=== PATIENT | male | born 1965 | race Caucasian/White ===

== ENCOUNTER 2020-02-10 23:30 | Emergency (ER) | payer OTHER, SELFPAY ==
--- NOTE | ~2020-02-10 | XR_ITS ---
EXAMINATION: XR abdomen/kub 1V DATE: 02/11/2020 01:21 INDICATION: Left lower flank pain. Urolithiasis. TECHNIQUE: A supine view of the abdomen on 2 radiographs was obtained. COMPARISON: CT dated 02/11/2020 FINDINGS: A subtle density seen in the region of the previous noted obstructing stone at the left ureterovesicu lar junction. A larger phlebolith seen in the right hemipelvis and there is an additional atheroscler otic calcification more cephalad in the left hemipelvis. The kidneys are opacified with contrast from the recent prior contrast enhanced CT. The right kidney and contrast opacified right renal collectin g system and ureter appear normal. The left kidney is enlarged with delayed contrast excretion within the dilated left renal collecting system and no evident contrast within the left ureter. Normal brenna l gas pattern. IMPRESSION: 1. Subtle density corresponding to a previously noted stone at the left ureterovesicular junction wit h mild left hydronephrosis with enlargement of the left kidney and delayed contrast excretion. Reviewed, dictated and finalized at location A. IMPRESSION: 1. Subtle density corresponding to a previously noted stone at the left uretero vesicular junction with mild left hydronephrosis with enlargement of the left k idney and delayed contrast excretion.
--- NOTE | ~2020-02-10 | CT_ITS ---
EXAMINATION: CT abdomen pelvis w con DATE: 02/11/2020 01:10 INDICATION: Lower abdominal pain. Left flank pain. TECHNIQUE: Computed tomography (CT) of the abdomen and pelvis was performed with 100 mL Omnipaque-350 intravenous contrast. Automated exposure control and iterative reconstruction technique were employe d. The dose-length product was 1385.35 mGy-cm. COMPARISON: None FINDINGS: Lung bases are clear. Heart size is normal. No pericardial or pleural effusion. Atherosclerotic coron adamaris artery calcifications. Small sliding-type hiatal hernia. Liver, gallbladder, spleen, pancreas, bi lateral adrenal glands and right kidney are normal. Delayed left nephrogram with mild left hydrourete ronephrosis extending to a 3-4 mm stone at the distalmost left ureter within 1 cm of the ureterovesic ular junction. Bladder is normal. Mild diverticulosis along the descending and sigmoid colon without adjacent inflammatory change to suggest diverticulitis. Small bowel and appendix are normal. No free intraperitoneal gas or fluid. No pathologically enlarged abdominal or pelvic lymphadenopathy. Small b ilateral fat-containing inguinal hernias. Bones are unremarkable. IMPRESSION: 1. 3-4 mm obstructing stone near the left ureterovesicular junction resulting in delayed left nephrog cedric and mild left hydroureteronephrosis. 2. Small sliding-type hiatal hernia. 3. Small bilateral fat-containing inguinal hernias. Reviewed, dictated and finalized at location A. IMPRESSION: 1. 3-4 mm obstructing stone near the left ureterovesicular junction resulting i n delayed left nephrogram and mild left hydroureteronephrosis. 2. Small sliding-type hiatal hernia. 3. Small bilateral fat-containing inguinal hernias.
[2020-02-10 23:30] VITALS: BP 166/94; PULSE 86; RESP 16; TEMP 36.6; O2SAT 97
--- NOTE | 2020-02-10 23:54 | ED.BACK ---
HPI - Back Pain/Injury General Chief Complaint: Back Pain/Injury Stated Complaint: low back pain Time Seen by Provider: 02/10/20 23:34 Source: patient Mode of arrival: EMS Limitations: no limitations History of Present Illness HPI Narrative: This patient is a 54 year old male who presents for evaluation of sudden onset left lower back pain 1.5 hours ago. He was sitting on the toilet when he develop sharp stabbing pain. This pain was so severe he became diaphoretic. He took aleve prior to arrival. He continued to have severe pain so he called 911. His has improved to 6/10 . He denies associated urinary symptoms, fever, chills or abdominal pain. He does feel bloated. Denies history of AAA. MD elicited complaint: back pain Related Data Home Medications Medication Instructions Recorded Confirmed atorvastatin 40 mg PO HS 02/11/20 bupropion HCl [Wellbutrin XL] 150 mg PO DAILY 02/11/20 duloxetine 60 mg PO BID 02/11/20 gabapentin 300 mg PO TID 02/11/20 lisinopril-hydrochlorothiazide 1 tablet PO DAILY 02/11/20 omeprazole 20 mg PO DAILY 02/11/20 primidone 50 mg PO BID 02/11/20 trazodone 100 mg PO HS PRN 02/11/20 Allergies Allergy/AdvReac Type Severity Reaction Status Date / Time iodine Allergy Intermediate Hives Verified 02/11/20 00:00 Penicillins Allergy Intermediate Hives Verified 02/11/20 00:00 Review of Systems Review of Systems: All systems reviewed & are unremarkable except as noted in HPI and below Constitutional: Constitutional: Denies chills and Denies fever(s) Cardiovascular: Cardiovascular: Denies chest pain Respiratory: Respiratory: Denies cough and Denies dyspnea Gastrointestinal: Gastrointestinal: Denies abdominal pain, Reports bloating, Denies diarrhea and Reports nausea Genitourinary: Genitourinary: Denies hematuria and Denies urinary frequency Musculoskeletal: Musculoskeletal: Reports back pain [facility] Past Medical History Medical History (Updated 02/11/20 @ 01:51 by Cammy Merino MD) Diabetes mellitus Hypertension Neuropathy Surgical History Surgical History (Updated 02/10/20 @ 23:55 by Cammy Merino MD) S/P surgery on nasal septum Social History Social History (Updated 02/10/20 @ 23:56 by Cammy Merino MD) Smoking status: Never smoker Alcohol intake: former Exam Const: General: no acute distress and alert Orientation/consciousness: patient oriented x3 HENMT: Head: normocephalic and atraumatic Face and sinus: face symmetric Eyes: EOM: EOMs intact bilaterally Chest: Chest palpation & inspection: normal inspection of the chest Resp: Effort & Inspection: normal respiratory effort and no retractions Auscultation: clear to auscultation bilaterally Cardio: Rate: regular rate Rhythm: regular rhythm Heart sounds: no murmurs GI: GI Palp: Yes Soft to palpation, No Tenderness to palpation present (GI) and No Guarding due to palpation present (GI) Auscultation: normal bowel sounds : General: Yes CVA tenderness on the left Skin: General skin exam: normal color Rashes: no rashes Neuro: General: patient oriented x3, moves all extremities and CN's II-XI intact bilaterally Extrem: General: normal to inspection Course Reevaluation(s) Reevaluation #1: PAtient states he feels better and his pain is 2/10. I discussed that he was found to have a kidney stone as the cause of his pain. He agrees with treatment and plan. Date: 02/11/20 Time: 01:47 Vital Signs Vital signs: Vital Signs Temperature 97.9 F 02/10/20 23:30 Pulse Rate 86 02/10/20 23:30 Respiratory Rate 16 02/10/20 23:30 Blood Pressure 166/94 H 02/10/20 23:30 Pulse Oximetry 97 02/10/20 23:30 Temperature 97.9 F 02/10/20 23:30 Pulse Rate 90 02/11/20 02:00 Respiratory Rate 15 02/11/20 02:00 Blood Pressure 147/77 H 02/11/20 02:00 Pulse Oximetry 96 02/11/20 02:00 MDM - Back Pain/Injury Lab Data Attestation: I reviewed the patient's lab results.
[2020-02-11] MEDS: ONDANSETRON INJ 4 MG/2 ML VIAL IV PUSH (00:01)
[2020-02-11 00:19] VITALS: BP 154/99; PULSE 81; RESP 16; O2SAT 97
[2020-02-11 00:38] LABS: Basophils Absolute Auto 0.2 K/mm3 (0.0-0.1); Basophils Percent Auto 1.2 % (0.2-1.2); Eosinophils Absolute Auto 0.2 K/mm3 (0-0.3); Eosinophils Percent Auto 1.6 % (0-4.4); Hematocrit 43.3 % (42.0-52.0); Immature Granulocyte Absolute 0.04 K/mm3 (0.00-0.031); Immature Granulocyte Percent A 0.3 % (0-0.5); Lymphocytes Absolute Auto 3.02 K/mm3 (0.9-3.2); Lymphocytes Percent Auto 23.6 % (18.3-44.2); Mean Corpuscular HGB Conc 34.6 g/dl (32-36); Mean Corpuscular Volume 89.5 fl (80-100); Mean Platelet Volume 9.5 fl (7.4-10.4); Neutrophils Absolute Auto 8.4 K/mm3 (1.3-6.7); Neutrophils Percent Auto 65.3 % (45.5-73.1); Platelet Count Result 378 k/mm3 (150-375); Red Blood Count 4.84 M/mm3 (4.6-6.20); Red Cell Distribution Width 11.9 % (11.5-14.5); White Blood Count 12.8 K/mm3 (4.5-10.0)
[2020-02-11 00:44] LABS: Alanine Aminotransferase 59 U/L (4-50); Albumin Level 4.8 g/dL (3.5-5.1); Alkaline Phosphatase 99 U/L (38-126); Anion Gap 12 mmol/L (8-16); Aspartate Amino Transferase 34 U/L (17-59); Bilirubin,Total 0.4 mg/dL (0.2-1.3); Blood Urea Nitrogen 20 mg/dL (9-20); Calcium 9.7 mg/dL (8.4-10.2); Carbon Dioxide 23 mmol/L (22-30); Chloride 100 mmol/L (98-107); Estimated CRCL calculation 97 ml/min; Estimated Glomerular Filt Rate > 60; Glucose 132 mg/dL (75-110); Lipase 118 U/L (23-300); Potassium 3.6 mmol/L (3.4-5.0); Sodium 135 mmol/L (137-145)
[2020-02-11 00:46] LABS: Add Urine Microscopic? YES; Appearance Urine Clear (Clear); Bilirubin Urine Negative (Negative); Blood Urine 2+ (Negative); Color Urine Yellow (Yellow); Glucose Urine UA Negative (Negative); Ketones Urine Negative (Negative); Leukocyte Esterase Ur Negative LEU/UL (Negative); Mucus Urine Rare /lpf; Nitrate Urine Negative (Negative); Protein Urine Negative (Negative); Specific Grav Ur 1.018 (1.001-1.035); Urobilinogen Urine Negative mg/dL (<2.0); WBC Urine 0-3 /hpf
[2020-02-11 01:30] VITALS: BP 143/83; PULSE 90; RESP 16; O2SAT 96
[2020-02-11 02:00] VITALS: BP 147/77; PULSE 90; RESP 15; O2SAT 96
[2020-02-11] MEDS: TAMSULOSIN HCL 0.4 MG CAPSULE PO (02:02)
== END 2020-02-11 02:15 | disposition home or self-care (01) ==
PROVIDERS: Emergency Provider General Practice
DX: N13.2 Hydronephrosis with renal and ureteral calculous obstruction (principal); E11.9 Type 2 diabetes mellitus without complications; I10 Essential (primary) hypertension; G62.9 Polyneuropathy, unspecified; K44.9 Diaphragmatic hernia without obstruction or gangrene; K40.90 Unilateral inguinal hernia, without obstruction or gangrene, not specified as recurrent
CPT/HCPCS: 36415; 74018; 74177; 80053; 81001; 83690; 85025; 96374; 96375; 99284; A9270; J1170; J2405; Q9967

== ENCOUNTER 2020-02-15 13:04 | Outpatient (CLI) | payer BC, OTHER, SELFPAY ==
--- NOTE | ~2020-02-15 | XR_ITS ---
EXAMINATION: XR abdomen/kub 1V INDICATION: Left ureteral stone TECHNIQUE: Supine views of the abdomen were obtained on 2 radiographs. COMPARISON: 02/11/2020 FINDINGS: There is a subtle 4 mm left pelvic calcification at the expected location of the left urete rovesicular junction, unchanged since the prior examination. Right pelvic phleboliths are noted. A la rge volume of colonic stool is present. The bowel gas pattern is normal. IMPRESSION: 1. Subtle 4 mm left pelvic calcification at the expected location of the left ureterovesicular juncti on. Reviewed, dictated and finalized at location A. IMPRESSION: 1. Subtle 4 mm left pelvic calcification at the expected location of the left u reterovesicular junction.
--- NOTE | ~2020-02-15 | CT_ITS ---
EXAMINATION: CT abdomen pelvis wo con DATE: 02/15/2020 13:51 INDICATION: Left ureteral stone. TECHNIQUE: Computed tomography (CT) of the abdomen and pelvis was performed without intravenous contr ast. Automated exposure control and iterative reconstruction technique were employed. The dose-length product was 542.54 mGy-cm. COMPARISON: CT abdomen and pelvis 02/11/2020 FINDINGS: The visualized portions of the lung bases demonstrate minimal atelectasis. No pleural effus ion. The heart size is normal. No pericardial effusion. There are coronary artery calcifications. The re is a small sliding hiatal hernia. There is diffuse hepatic steatosis. The gallbladder, spleen, milton creas, adrenal glands, and right kidney are normal. There is mild left hydronephrosis and hydroureter . There is a 4 mm stone at left ureterovesicular junction. There are bilateral inguinal hernias conta ining fat. There is diverticulosis of the colon without evidence of diverticulitis. There are no dila alber loops of bowel. The appendix is normal. There are no pathologically enlarged lymph nodes. There i s no free intraperitoneal fluid. There is mild thoracolumbar spondylosis. There is mild chronic anter ior wedging of T8 and T9 vertebral bodies. IMPRESSION: 1. 4 mm stone at left ureterovesicular junction with mild left hydronephrosis and hydroureter. Reviewed, dictated and finalized at location A. IMPRESSION: 1. 4 mm stone at left ureterovesicular junction with mild left hydronephrosis a nd hydroureter.
== END 2020-02-15 13:05 | disposition home or self-care (01) ==
LOC: ANHIMG 13:10
PROVIDERS: PCP Nurse Practitioner Family; Visit Provider Urology
DX: N20.1 Calculus of ureter (principal)
CPT/HCPCS: 74018; 74176

== ENCOUNTER → 2020-07-12 10:48 | Outpatient (CLI) | payer BC, OTHER, SELFPAY ==
--- NOTE | ~2020-07-12 | XR_ITS ---
EXAMINATION: XR toe 1st LT min 2V DATE: 07/12/2020 11:30 INDICATION: Swelling, pain and erythema at the left great toe TECHNIQUE: Dorsal plantar, lateral and oblique views of the left first toe were obtained. COMPARISON: None FINDINGS: Bone alignment is normal. No fracture. Profile joint spaces appear relatively preserved with tiny mar ginal osteophytes at the first metatarsophalangeal joint consistent with minimal osteoarthritis. No c ortical erosions to suggest an inflammatory arthritis or gout. No periosteal reaction. Small plantar calcaneal spur. Soft tissues are unremarkable. 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 No acute osseous abnormality. Reviewed, dictated and finalized at location B. [employer]
== END ==
PROVIDERS: PCP Nurse Practitioner Family; Visit Provider Nurse Practitioner Family
DX: M79.675 Pain in left toe(s) (principal)
CPT/HCPCS: 73660